=== PATIENT | female | born 1955 | race American Indian/Alaskan Native ===

== ENCOUNTER 2017-04-05 11:38 | Emergency (ER) | payer MEDICARE ==
[2017-04-05 11:38] VITALS: BMI 29.2
[2017-04-05 12:22] VITALS: RESP 18
[2017-04-05 13:07] LABS: RBC URINE 3 /hpf (0-3); URINE BACTERIA MOD (<OCC); URINE BILIRUBIN NEGATIVE (NEGATIVE); URINE BLOOD 1+ (NEGATIVE); URINE COLOR Yellow (YELLOW); URINE GLUCOSE (UA) NORMAL (Normal); URINE KETONE NEGATIVE (NEGATIVE); URINE LEUKOCYTE ESTERASE TRACE Leu/uL (Negative); URINE PROTEIN 2+ mg/dL (NEGATIVE); URINE UROBILINOGEN NORMAL mg/dL (0.2-1.0); WBC URINE 11 /hpf (0-5)
[2017-04-05] MEDS ORDERED: Sodium Chloride 0.9% 1,000 ML IV ONE (13:12)
[2017-04-05] MEDS ORDERED: Sodium Chloride 0.9% 1,000 ML ONE (13:30)
[2017-04-05] MEDS ORDERED: Morphine 4 MG/ML VIAL ONE (13:30)
[2017-04-05 13:32] LABS: BASO # 0.1 K/uL (0.0-0.2); BASO % 1.2 % (0.0-2.0); EOS # 0.2 K/uL (0.0-0.7); EOS % 4.1 % (0.0-4.0); HEMATOCRIT 35.2 % (34.0-47.0); LYMPH # 1.6 K/uL (1.0-4.3); LYMPH % 38.5 % (20.0-40.0); MEAN CELL VOLUME 71.9 fL (81.0-99.0); MEAN CORPUSCULAR HEMOGLOBIN 22.3 pg (27.0-31.0); MEAN CORPUSCULAR HGB CONC 30.9 g/dL (33.0-37.0); MEAN PLATELET VOLUME 8.6 fL (7.2-11.7); MONO # 0.3 K/uL (0.0-0.8); MONO % 6.5 % (0.0-10.0); NRBC % 0.6 % (0.0-2.0); RED CELL DISTRIBUTION WIDTH 15.4 % (11.5-14.5); WHITE BLOOD COUNT 4.1 K/uL (4.8-10.8)
[2017-04-05 13:45] LABS: POTASSIUM 4.5 mmol/L (3.6-5.2)
[2017-04-05 13:47] LABS: ALB/GLOB RATIO 0.9 (1.0-2.1); BILIRUBIN,TOTAL 0.6 mg/dL (0.2-1.3); TOTAL PROTEIN 8.8 g/dL (6.3-8.3)
[2017-04-05 13:48] LABS: CALCIUM 8.8 mg/dl (8.6-10.4)
--- NOTE | 2017-04-05 14:49 | C.PDOC ---
History Of Present Illness 61 year old female with Hx of renal cysts presents to the ED c/o left side flank pain for the last 2 weeks. Patient states she was seen by her urologist Dr. Lyn, who gave her Rxs for blood work and CT scan of abd/pelvis. However patient has not had studies done, states she came to ED today because pain worsened. She denies vomiting, diarrhea, fever, dysuria/hematuria. Time Seen by Provider: 04/05/17 12:59 Chief Complaint (Nursing): Back Pain History Per: Patient History/Exam Limitations: no limitations Onset/Duration Of Symptoms: Days Current Symptoms Are (Timing): Still Present Quality Of Discomfort: "Pain" Severity: Moderate Previous Symptoms: Back Pain Additional History Per: Patient Past Medical History Reviewed: Historical Data, Nursing Documentation, Vital Signs Vital Signs: Last Vital Signs Temp 98 F 04/05/17 15:43 Pulse 77 04/05/17 15:43 Resp 18 04/05/17 15:43 BP 142/75 04/05/17 15:43 Pulse Ox 100 04/05/17 16:21 - Medical History PMH: Anxiety, Arthritis, Diverticulitis, Fibromyalgia, HTN, Kidney Stones, Migraine, Chronic Kidney Disease Surgical History: No Surg Hx Family History: States: No Known Family Hx - Social History Hx Tobacco Use: No Hx Alcohol Use: No Hx Substance Use: No - Immunization History Hx Tetanus Toxoid Vaccination: Yes Hx Influenza Vaccination: Yes Hx Pneumococcal Vaccination: Yes Review Of Systems Except As Marked, All Systems Reviewed And Found Negative. Constitutional: Negative for: Fever, Chills Cardiovascular: Negative for: Chest Pain, Palpitations Respiratory: Negative for: Shortness of Breath Gastrointestinal: Positive for: Abdominal Pain (left flank). Negative for: Nausea, Vomiting, Diarrhea Musculoskeletal: Positive for: Back Pain Physical Exam - Physical Exam Appears: Well, Non-toxic, Other (Mild/moderate pain) Skin: Normal Color, Warm, Dry Head: Normacephalic Oral Mucosa: Moist Neck: Supple Chest: Symmetrical Cardiovascular: Rhythm Regular Respiratory: Normal Breath Sounds, No Rales, No Rhonchi, No Wheezing Gastrointestinal/Abdominal: Normal Exam, Bowel Sounds, Soft, No Tenderness Back: CVA Tenderness (Left) Extremity: Normal ROM, No Pedal Edema, No Calf Tenderness Neurological/Psych: Oriented x3 Gait: Steady ED Course And Treatment - Laboratory Results Result Diagrams: 04/05/17 13:28 04/05/17 13:28 O2 Sat by Pulse Oximetry: 100 (On RA) Pulse Ox Interpretation: Normal - CT Scan/US CT abdomen/pelvis Other Rad Studies (CT/US): Interpreted By Me, Read By Radiologist, Radiology Report Reviewed CT/US Interpretation: FINDINGS: There is limited evaluation of the solid organs without the administration of IV contrast. LOWER THORAX: No visible consolidation, pleural effusion, or pneumothorax. LIVER: 14 mm hypodensity within the posterior right hepatic lobe appear stable. GALLBLADDER AND BILE DUCTS: Unremarkable unenhanced appearance. PANCREAS: Unremarkable unenhanced appearance. SPLEEN: Unremarkable unenhanced appearance. ADRENALS: Unremarkable. KIDNEYS AND URETERS: Right nephrectomy. Larger left renal cyst measures approximately 6.4 cm. No left-sided hydronephrosis or obstructing calculus. BLADDER: Air within the urinary bladder; correlate clinically for recent instrumentation. Suggest urinalysis. Cystitis is not excluded. REPRODUCTIVE: Uterus is absent presumably due to hysterectomy. APPENDIX: The appendix appears within normal limits of caliber. No secondary signs of acute appendicitis. BOWEL: The stomach is nondistended. Lack of oral contrast limits evaluation for bowel pathology. The bowel loops appear within normal limits of caliber without evidence of intestinal obstruction. Diverticulosis without CT evidence of acute diverticulitis. PERITONEUM: No significant free fluid. No definite free air. LYMPH NODES: No bulky lymphadenopathy identified. VASCULATURE: No aortic aneurysm. BONES: Mild degenerative changes. OTHER FINDINGS: None. IMPRESSION: 14 mm hypodense lesion within the posterior right hepatic lobe appear stable. Right nephrectomy. Larger left renal cyst measures approximately 6.4 cm. No left-sided hydronephrosis or obstructing calculus. Air within the urinary bladder; correlate clinically for recent instrumentation. Suggest urinalysis. Cystitis is not excluded. Uterus is absent presumably due to hysterectomy. Diverticulosis without CT evidence of acute diverticulitis. Additional findings as above. Progress Note: Plan: Blood work, UA, Ucx and CT scan abd/pelvis ordered. Patient given IV morphine. Reevaluation Time: 15:30 Reassessment Condition: Improved (Patient reassessed, is resting comfortably and states she feels better. UA (+) for UTI, CT scan shows left sided renal cyst and hypodense lesion in liver, both of which patient is aware. She was instructed to follow up with urology within 1 week, and understands she should return to ED if symptoms worsen.) - Physician Consult Information Physician Contacted: Erik Lyn Jr. Outcome Of Conversation: Discussed patient with urologist, recommends antibiotics, pain medication and follow up in the office. Disposition Counseled Patient/Family Regarding: Studies Performed, Diagnosis, Need For Followup, Rx Given - Disposition Referrals: Erik Lyn Jr., MD [Staff Provider] - Marquise Diaz MD [Staff Provider] - Disposition: HOME/ ROUTINE Disposition Time: 15:30 Condition: STABLE Additional Instructions: FOLLOW UP WITH DR LYN WITHIN 1 WEEK USE MEDICATIONS NEEDED RETURN TO ER IF SYMPTOMS WORSEN Prescriptions: Acetaminophen with Codeine [Tylenol with Codeine #3 Tablet] 1 each PO Q6 PRN # 15 tablet PRN Reason: pain Ciprofloxacin [Cipro] 1 tab PO BID #14 tab Instructions: Urinary Tract Infection in Women (ED), Kidney Cyst (ED) Forms: [employer] (Kinyarwanda) Print Language: BAHRAINI - POA Present On Arrival: None - Clinical Impression Clinical Impression: Renal cyst, UTI (urinary tract infection) - Scribe Statement The provider has reviewed the documentation as recorded by the Scribe Provider Attestation: Rubén Bustamante All medical record entries made by the Scribe were at my direction and personally dictated by me. I have reviewed the chart and agree that the record accurately reflects my personal performance of the history, physical exam, medical decision making, and the department course for this patient. I have also personally directed, reviewed, and agree with the discharge instructions and disposition.
--- NOTE | 2017-04-05 15:19 | CT ---
PROCEDURE: CT Abdomen and Pelvis without Oral or IV contrast. HISTORY: LEFT FLANK PAIN, H/O RENAL CYST COMPARISON: CT abdomen and pelvis without contrast performed 06/11/16 TECHNIQUE: Contiguous axial images of the abdomen and pelvis. No oral or IV contrast administered. Coronal and Sagittal reformats generated and reviewed. Radiation dose: Total exam DLP = 456.67 mGy-cm. This CT exam was performed using one or more of the following dose reduction techniques: Automated exposure control, adjustment of the mA and/or kV according to patient size, and/or use of iterative reconstruction technique. FINDINGS: There is limited evaluation of the solid organs without the administration of IV contrast. LOWER THORAX: No visible consolidation, pleural effusion, or pneumothorax. LIVER: 14 mm hypodensity within the posterior right hepatic lobe appear stable. GALLBLADDER AND BILE DUCTS: Unremarkable unenhanced appearance. PANCREAS: Unremarkable unenhanced appearance. SPLEEN: Unremarkable unenhanced appearance. ADRENALS: Unremarkable. KIDNEYS AND URETERS: Right nephrectomy. Larger left renal cyst measures approximately 6.4 cm. No left-sided hydronephrosis or obstructing calculus. BLADDER: Air within the urinary bladder; correlate clinically for recent instrumentation. Suggest urinalysis. Cystitis is not excluded. REPRODUCTIVE: Uterus is absent presumably due to hysterectomy. APPENDIX: The appendix appears within normal limits of caliber. No secondary signs of acute appendicitis. BOWEL: The stomach is nondistended. Lack of oral contrast limits evaluation for bowel pathology. The bowel loops appear within normal limits of caliber without evidence of intestinal obstruction. Diverticulosis without CT evidence of acute diverticulitis. PERITONEUM: No significant free fluid. No definite free air. LYMPH NODES: No bulky lymphadenopathy identified. VASCULATURE: No aortic aneurysm. BONES: Mild degenerative changes. OTHER FINDINGS: None. IMPRESSION: 14 mm hypodense lesion within the posterior right hepatic lobe appear stable. Right nephrectomy. Larger left renal cyst measures approximately 6.4 cm. No left-sided hydronephrosis or obstructing calculus. Air within the urinary bladder; correlate clinically for recent instrumentation. Suggest urinalysis. Cystitis is not excluded. Uterus is absent presumably due to hysterectomy. Diverticulosis without CT evidence of acute diverticulitis. Additional findings as above.
[2017-04-05 15:44] VITALS: BP 142/75; PULSE 77; TEMP 98
[2017-04-05 16:22] VITALS: O2SAT 100
== END 2017-04-05 15:43 | disposition home or self-care (01) ==
LOC: C.ER 11:38
DX: N39.0 Urinary tract infection, site not specified (principal); N28.1 Cyst of kidney, acquired; I12.9 Hypertensive chronic kidney disease with stage 1 through stage 4 chronic kidney disease, or unspecified chronic kidney disease; N18.9 Chronic kidney disease, unspecified
CPT/HCPCS: 74176; 80053; 81001; 85025; 85610; 85730; 87086; 87181; 96361; 96374; 99284; J2270; J7040

== ENCOUNTER 2018-05-29 10:29 | Emergency (ER) | payer MEDICARE ==
[2018-05-29 10:48] VITALS: BMI 31.2
[2018-05-29 10:51] VITALS: O2SAT 98
[2018-05-29] MEDS ORDERED: Sodium Chloride 0.9% 1,000 ML IV ONE (11:18)
[2018-05-29] MEDS ORDERED: Sodium Chloride 0.9% 1,000 ML ONE (11:49)
--- NOTE | 2018-05-29 11:57 | C.PDOC ---
History Of Present Illness 63 years old female with Hx of partial Nephrectomy (Right kidney due to cancer) and kidney stones/cysts of left kidney presents to ED for complaints of constant left flank pain associated with nausea, dysuria, and frequency and urgency that began last night. Patient states symptoms are similar to prior UTI symptoms. Denies fever, diarrhea, vomiting, or ant other complaints. 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 Patient reports taking oxycodone for pain with no relief. Time Seen by Provider: 05/29/18 10:55 Chief Complaint (Nursing): Female Genitourinary History Per: Patient History/Exam Limitations: no limitations Onset/Duration Of Symptoms: Hrs, Persistent Current Symptoms Are (Timing): Still Present Quality Of Discomfort: "Pain" Associated Symptoms: Nausea, Urinary Symptoms. denies: Fever, Chills, Vomiting, Diarrhea Alleviating Factors: None Recent travel outside of the [place]: No Abnormal Vaginal Bleeding: No Past Medical History Reviewed: Historical Data, Nursing Documentation, Vital Signs Vital Signs: Last Vital Signs Temp 98.3 F 05/29/18 10:48 Pulse 92 H 05/29/18 10:48 Resp 18 05/29/18 10:48 BP 185/101 H 05/29/18 10:48 Pulse Ox 98 05/29/18 10:48 - Medical History PMH: Anxiety, Arthritis, Diverticulitis, Fibromyalgia, HTN, Kidney Stones, Migraine, Chronic Kidney Disease Family History: States: Unknown Family Hx - Social History Hx Tobacco Use: No Hx Alcohol Use: No Hx Substance Use: No - Immunization History Hx Tetanus Toxoid Vaccination: Yes Hx Influenza Vaccination: Yes Hx Pneumococcal Vaccination: Yes Review Of Systems Constitutional: Negative for: Fever, Chills Gastrointestinal: Positive for: Nausea. Negative for: Vomiting, Abdominal Pain, Diarrhea Genitourinary: Positive for: Dysuria, Frequency. Negative for: Hematuria, Vag inal Discharge, Vaginal Bleeding Musculoskeletal: Positive for: Other (Left Flank pain ) Skin: Negative for: Rash Neurological: Negative for: Weakness, Numbness Physical Exam - Physical Exam Appears: Non-toxic, No Acute Distress Skin: Normal Color, Warm, Dry, No Rash Head: Atraumatic, Normacephalic Eye(s): bilateral: Normal Inspection, PERRL, EOMI Oral Mucosa: Moist Neck: Normal ROM, Supple Chest: Symmetrical, No Tenderness Cardiovascular: Rhythm Regular, No Murmur Respiratory: Normal Breath Sounds, No Rales, No Rhonchi, No Wheezing Gastrointestinal/Abdominal: Bowel Sounds (Active ), Soft, No Tenderness, Distention, No Guarding, No Rebound Back: Normal Inspection, No CVA Tenderness Extremity: Normal ROM Extremity: Bilateral: Atraumatic, Normal Color And Temperature, Normal ROM Pulses: Left Radial: Normal, Right Radial: Normal Neurological/Psych: Oriented x3, Normal Speech Gait: Steady ED Course And Treatment - Laboratory Results Result Diagrams: 05/29/18 12:07 05/29/18 12:07 O2 Sat by Pulse Oximetry: 98 (RA) Pulse Ox Interpretation: Normal Medical Decision Making Medical Decision Making: Impression: Left flank pain Plan: * IV Fluids * Toradol * Urinalysis * Blood work * Urine culture Progress: Lab results reviewed and renal function normal. UA shows leukocytes. Patient feels better and treated with Bactrim PO. Patient remained afebrile and BP was normal. Patient stable for discharge. Rx given. Patient to follow up with PMD. Disposition Counseled Patient/Family Regarding: Diagnosis, Need For Followup, Rx Given - Disposition Referrals: Marquise Diaz MD [Staff Provider] - Disposition: HOME/ ROUTINE Disposition Time: 13:25 Condition: STABLE Additional Instructions: Follow up with your primary medical doctor in 2-5 days for further evaluation. Take medications as prescribed. Return to the emergency department at any time if symptoms persist or worsen. Prescriptions: Sulfamethoxazole/Trimethoprim [Bactrim DS 800 mg-160 mg] 1 tab PO BID #10 tab Instructions: Urinary Tract Infection, Adult (DC) Forms: [employer] (Urdu) - POA Present On Arrival: None - Clinical Impression Clinical Impression: UTI (urinary tract infection) - PA / AUDIT ASSOCIATE / Resident Statement MD/DO has reviewed & agrees with the documentation as recorded. - Scribe Statement The provider has reviewed the documentation as recorded by the Oscar Jarquin All medical record entries made by the Coryibjase were at my direction and personally dictated by me. I have reviewed the chart and agree that the record accurately reflects my personal performance of the history, physical exam, medical decision making, and the department course for this patient. I have also personally directed, reviewed, and agree with the discharge instructions and disposition.
[2018-05-29 12:11] LABS: BASO # 0.1 K/uL (0.0-0.2); BASO % 2.3 % (0.0-2.0); EOS # 0.2 K/uL (0.0-0.7); EOS % 6.4 % (0.0-4.0); HEMOGLOBIN 10.6 g/dL (11.0-16.0); LYMPH # 1.1 K/uL (1.0-4.3); LYMPH % 34.9 % (20.0-40.0); MEAN CELL VOLUME 74.3 fL (81.0-99.0); MEAN CORPUSCULAR HEMOGLOBIN 23.2 pg (27.0-31.0); MEAN CORPUSCULAR HGB CONC 31.1 g/dL (33.0-37.0); MONO # 0.2 K/uL (0.0-0.8); MONO % 7.2 % (0.0-10.0); NEUT # 1.6 K/uL (1.8-7.0); NEUT % 49.2 % (50.0-75.0); NRBC % 0.1 % (0.0-2.0); RBC 4.58 Mil/uL (3.80-5.20); RED CELL DISTRIBUTION WIDTH 14.6 % (11.5-14.5); WHITE BLOOD COUNT 3.3 K/uL (4.8-10.8)
[2018-05-29 12:18] LABS: SQUAMOUS EPITHIAL 3 /hpf (0-5); URINE BACTERIA RARE (<OCC); URINE BILIRUBIN NEGATIVE (NEGATIVE); URINE BLOOD NEGATIVE (NEGATIVE); URINE CLARITY Hazy (Clear); URINE COLOR Yellow (YELLOW); URINE GLUCOSE (UA) NORMAL (Normal); URINE LEUKOCYTE ESTERASE 2+ Leu/uL (Negative); URINE PROTEIN 2+ mg/dL (NEGATIVE); URINE UROBILINOGEN NORMAL mg/dL (0.2-1.0)
[2018-05-29 12:36] LABS: ALB/GLOB RATIO 1.2 (1.0-2.1); ALBUMIN 4.2 g/dL (3.5-5.0); CALCIUM 9.2 mg/dl (8.6-10.4)
[2018-05-29 12:58] VITALS: BP 162/99; PULSE 80; RESP 16; TEMP 98.2
[2018-05-29] MEDS ORDERED: Tmp-Smz 800 mg-160 mg DS Tab PO STA (13:04)
[2018-05-29] MEDS ORDERED: Tmp-Smz 800 mg-160 mg DS Tab ONE (13:17)
== END 2018-05-29 13:25 | disposition home or self-care (01) ==
LOC: C.ER 10:29
DX: N39.0 Urinary tract infection, site not specified (principal); I12.9 Hypertensive chronic kidney disease with stage 1 through stage 4 chronic kidney disease, or unspecified chronic kidney disease; N18.9 Chronic kidney disease, unspecified; M79.7 Fibromyalgia
CPT/HCPCS: 80053; 81001; 85025; 87086; 87181; 96361; 96374; 99285; J1885; J7030